=== PATIENT | male | born 1990 | race Caucasian/White ===

== ENCOUNTER 2017-02-01 16:33 | Emergency (ER) | payer MEDICAID ==
[2017-02-01 16:41] VITALS: BP 158/115; BMI 45.7
[2017-02-01 17:04] LABS: BASOPHILS % (AUTO) 0.4 % (0.2-1.0); EOSINOPHILS # (AUTO) 0.1 x10^3/uL (0.0-0.2); EOSINOPHILS % (AUTO) 1.1 % (0.9-2.9); HEMATOCRIT 47.9 % (42.0-54.0); HEMOGLOBIN 15.5 g/dL (13.5-18.0); LYMPHOCYTES % (AUTO) 16.6 % (21.0-51.0); MEAN CORPUSCULAR HEMOGLOBIN 25.7 pg (27.0-34.0); MEAN CORPUSCULAR HGB CONC 32.3 g/dL (33.0-35.0); MEAN CORPUSCULAR VOLUME 79.5 fL (80.0-100.0); MEAN PLATELET VOLUME 9.5 fL (7.4-11.0); MONOCYTES # (AUTO) 0.5 x10^3/uL (0.3-0.8); MONOCYTES % (AUTO) 4.3 % (0.0-13.0); NEUTROPHILS # (AUTO) 9.4 x10^3/uL (2.2-4.8); NEUTROPHILS % (AUTO) 77.6 % (42.0-75.0); PLATELET COUNT 311 X10^3/uL (150.0-450.0); RED BLOOD COUNT 6.03 X10^6/uL (4.7-6.0); RED CELL DISTRIBUTION WIDTH 14.4 % (11.6-16.5); WHITE BLOOD COUNT 12.1 X10^3/uL (3.6-10.0)
[2017-02-01 17:17] LABS: ALANINE AMINOTRANSFERASE 39 Units/L (12-78); ALBUMIN 4.3 g/dL (3.4-5.0); ALKALINE PHOSPHATASE 111 Units/L (46-116); ASPARTATE AMINO TRANSFERASE 17 Units/L (15-37); BLOOD ALCOHOL < 3 mg/dL (0-19.9); BLOOD UREA NITROGEN 7 mg/dL (7-18); CALCIUM 9.1 mg/dL (8.5-10.1); CARBON DIOXIDE 26.7 mmol/L (21-32); CHLORIDE 100 mmol/L (98-107); CREATININE 0.92 mg/dL (0.70-1.30); GLUCOSE 104 mg/dL (65-99); SODIUM 133 mmol/L (136-145); TOTAL PROTEIN 8.4 g/dL (6.4-8.2); eGFR BLACK RACES > 60 (>60); eGFR NON BLACK RACES > 60 (>60)
[2017-02-01 17:21] LABS: AMORPHOUS SEDIMENT,UR TRACE /HPF (NEGATIVE); APPEARANCE,URINE CLEAR (CLEAR); BACTERIA,URINE NEGATIVE /HPF (NEGATIVE); BILIRUBIN,URINE NEGATIVE (NEGATIVE); BLOOD/HEMOGLOBIN,URINE NEGATIVE (NEGATIVE); COLOR,URINE YELLOW (YELLOW); GLUCOSE, URINE NEGATIVE (NEGATIVE); KETONES,URINE 3+ (NEGATIVE); LEUKOCYTE ESTERASE ,URINE NEGATIVE (NEGATIVE); NITRITES,URINE NEGATIVE (NEGATIVE); PH,URINE 6.5 (5.0 - 8.0); PROTEIN,URINE NEGATIVE (NEGATIVE); RBC,URINE NONE SEEN /HPF (NEGATIVE); SQUAMOUS EPITHELIAL CELL,UR FEW /HPF (NEGATIVE); UROBILINOGEN,URINE NORMAL (NORMAL)
[2017-02-01 17:23] LABS: SALICYLATE 4.5 mg/dL (2.8-20)
[2017-02-01 17:25] LABS: PLATELET MORPHOLOGY COMMENT NORMAL (NORMAL)
[2017-02-01 17:27] LABS: ACETAMINOPHEN < 10.0 ug/mL (10-30)
--- NOTE | 2017-02-01 17:39 | DR.GENAD ---
HPI - PCP Primary Care Physician: DR. TRAN - Complaint/Symptoms Chief Complaint Doctors Comments: Patient states he is going throught withdrawls from Percocet and Lorcets that he has been taking for his back for the past three years. States he was taking pain medicines for slipped discs in his back with right leg parathesia and had back surgery 1 Nov 08 and was given [address] monthly [address] Tran and he takes them up within four days. States he has been taking eight pain medicines daily and he runs out and has to try to get the pain pills from the street. States he has been having problems being unable to sleep, jerking a lot with runny nose and unable to rest and has been feeling bad. States he has been trying to get on Symboxin but he cannot find a doctor to prescribe it for him. States he has had his 120 pills for this month and he has taken all of them. States he has been thinking about hurting himself by taking an over dose of his blood pressure pills and the other pills he has. states that he tried to kill himself about two years ago he was depressed and went to [place]. States he smokes a pack of cigarettes daily and her tried cocaine yesterday because someone told him it would help with the withdrawls. He denies chest pain or SOB presently, Chief Complaint:: PT. STATED THAT HE IS GOING THROUGH WITHDRAWLS FROM PERCOCET. HE IS BEEN OUT LOOKING FOR SOME TO BUY SOME FROM THE OFF THE STREET. HE STATED THAT HE WANTS TO KILL HIMSELF BY OVERDOSING ON WHAT PILLS HE HAS. PATIENT STATED THAT HE HAD ONE PERCOCET YESTERDAY. - Nurses notes reviewed Nurses Notes Review: Yes - Source History Provided: Patient - Mode of Arrival Mode of Arrival: Ambulatory - Timing Onset of Chief Complaint: 01/31/17 Came on: Gradually - Duration Duration: Constant How lon Duration: Days - Location Location: felling like going through withdrawals - Severity Severity: Moderate - Modifying Factors Worsens:: nothing Improves:: nothing PMH - PMH Past Medical History: Yes Past Medical History: Hypertension Past Surgical History: Yes Surgical History: Appendectomy, Cholecystectomy, Ortho Surgery - Family History History of Family Medical Conditions: Yes Family Medical History: Heart Failure, Hypertension - Social History Does patient currently use any type of tobacco product: Yes Have you used tobacco products in the last 12 months: Yes Type of Tobacco Use: Cigarettes Does any household member use tobacco: No Alcohol Use: Rarely Do you use any recreational Drugs:: No Lives With: Family Lives Where: Home - infectious screening In the last 2 months have you had wt loss of >10#?: NO Have you had fever, night sweats or hemotysis?: No Have you traveled outside the country in the last 6 months?: No Isolation: Standard ROS - Review of Systems Constitutional: No Symptoms Reported, Irritable, Loss of Appetite. negative: See HPI, Chills, Diaphoresis, Fever, Malaise, Weakness, Fatigue, Other Eyes: No Symptoms Reported ENTM: No Symptoms Reported, Nose Discharge, Nose Congestion. negative: See HPI , Ear Pain, Ear Discharge, Pulling on Ears, Hearing Loss, Nose Pain, Epistaxis, Mouth Pain, Mouth Swelling, Loose Teeth, Drooling, Throat Pain, Throat Swelling , Ear Foreign Body Respiratoy: No Symptoms Reported Cardiovascular: No Symptoms Reported, Palpitations. negative: See HPI, Chest Pain, Edema, Syncope, Cyanosis, Skin Mottling, Other Gastrointestinal/Abdominal: No Symptoms Reported, Nausea, Vomiting. negative: See HPI, Abdominal Pain, Constipation, Diarrhea, Food Intolerance, Other Genitourinary: No Symptoms Reported Neurological: No Symptoms Reported, Depressed, Emotional Problems. negative: See HPI, Anxiety, Headache, Numbness, Paresthesia, Pre-existing Deficit, Seizure , Tingling, Tremors, Weakness, Dizziness, Problems Walking, Speech Problem, Other Musculoskeletal: No Symptoms Reported, Back Integumentary: No Symptoms Reported Hematologic/Lymphatic: No Symptoms Reported. negative: See HPI, Anemia, Blood Clots, Easy Bleeding, Easy Bruising, Swollen Glands, Lymphadenopathy, Other Endocrine: No Symptoms Reported Psychiatric: No Symptoms Reported PE - Vital Signs Vitals: Temperature 98.2 F Pulse Rate 116 Respiratory Rate 20 Blood Pressure [Left Arm] 147/82 Blood Pressure 158/115 O2 Sat by Pulse Oximetry 99 - General Limitations: No Limitations General Appearance: Alert, In No Apparent Distress - Head Head Exam: Normal Inspection, Atraumatic, Normocephalic - Eyes Eye exam: Normal Appearance, PERRL, EOMI. negative: Scleral Icterus, Conjunctival Injection, Nystagmus, Miosis, Mydrasis, Periorbital Swelling, Periorbital Tenderness, Other - ENT ENT Exam: Normal Exam, Normal Oropharynx, Normal External Ear Exam, Mucous Membranes Moist, TM's Normal Bilaterally External Ear Exam: Normal External Inspection TM/Canal Exam: Bilateral Normal Nose Exam: Normal Nose Exam Mouth Exam: Normal Inspection Throat Exam: Normal Inspection - Neck Neck Exam: Normal Inspection, Full ROM, Trachea Midline - Chest Chest Inspection: Normal Inspection, Symmetric Chest Wall Rise - Respiratory Respiratory Exam: Normal Lung Sounds Bilat Respiratory Exam: Bilateral Clear to Auscultation - Cardiovascular Cardiovascular Exam: Regular Rate, Normal Rhythm, Normal Heart Sounds. negative : Bradycardia, Tachycardia, Irregular Rhythm, Systolic Murmur, Diastolic Murmur , Rubs, Gallop, Clicks, JVD, +S1, +S2, +S3, +S4, Other - Abdominal Exam Abdominal Exam: Normal Inspection, Normal Bowel Sounds, Soft Abdominal Tenderness: negative: RUQ, RLQ, LUQ, LLQ, Epigastrium, Suprapubic, Diffuse, Mild, Moderate, Severe, Other - Extremities Extremities Exam: Normal Inspection, Full ROM, Normal Capillary Refill. negative: Tenderness, Edema, Joint Swelling, Calf Tenderness, Other - Back Back Exam: Normal Inspection, Full ROM, Tenderness. negative: (R) CVA Tenderness, (L) CVA Tenderness, Muscle Spasm, Paraspinal Tenderness, Vertebral Tenderness, Rashes, (R) Sciatic Notch Tenderness, (L) Sciatic Notch Tendern, (R ) Straight Leg Raise, (L) Straight Leg Raise, Other - Neurologic Neurological Exam: Alert, Oriented X3, CN II-XII Intact, Reflexes Normal. negative: Normal Gait (gait not tested) - Psychiatric Psychiatric Exam: Normal Affect, Normal Mood, Depressed. negative: Agitated, Anxious, Flat Affect, Manic, Homicidal Ideation, Suicidal Ideation, Other - Skin Skin Exam: Warm, Dry, Intact, Normal Color. negative: Rash, Cyanosis, Diaphoresis, Erythema, Pallor, Mottled, Other ROR - Labs Reviewed Laboratory Results Reviewed?: Yes (All labs results reviewed but some were pending when patient signed AMA.) Result Diagrams: 02/01/17 16:50 02/01/17 16:50 Laboratory: WBC 12.1 X10^3/uL (3.6-10.0) H 02/01/17 16:50 RBC 6.03 X10^6/uL (4.7-6.0) H 02/01/17 16:50 Hgb 15.5 g/dL (13.5-18.0) 02/01/17 16:50 Hct 47.9 % (42.0-54.0) 02/01/17 16:50 MCV 79.5 fL (80.0-100.0) L 02/01/17 16:50 MCH 25.7 pg (27.0-34.0) L 02/01/17 16:50 MCHC 32.3 g/dL (33.0-35.0) L 02/01/17 16:50 RDW 14.4 % (11.6-16.5) 02/01/17 16:50 Plt Count 311 X10^3/uL (150.0-450.0) 02/01/17 16:50 Plt Count Comment Adequate (ADEQUATE) 02/01/17 16:50 MPV 9.5 fL (7.4-11.0) 02/01/17 16:50 Neut % 77.6 % (42.0-75.0) H 02/01/17 16:50 Lymph % 16.6 % (21.0-51.0) L 02/01/17 16:50 [place] % 4.3 % (0.0-13.0) 02/01/17 16:50 Eos % 1.1 % (0.9-2.9) 02/01/17 16:50 Baso % 0.4 % (0.2-1.0) 02/01/17 16:50 Neut # 9.4 x10^3/uL (2.2-4.8) H 02/01/17 16:50 Lymph # 2.0 X10^3/uL (1.3-2.9) 02/01/17 16:50 [place] # 0.5 x10^3/uL (0.3-0.8) 02/01/17 16:50 Eos # 0.1 x10^3/uL (0.0-0.2) 02/01/17 16:50 Baso # 0.0 X10^3/uL (0.0-0.1) 02/01/17 16:50 Absolute Nucleated RBC 0.0 /100WBC 02/01/17 16:50 Plt Morphology Comment Normal (NORMAL) 02/01/17 16:50 RBC Morphology Normal (NORMAL) 02/01/17 16:50 Sodium 133 mmol/L (136-145) L 02/01/17 16:50 Corrected Sodium TNP 02/01/17 16:50 Potassium 3.6 mmol/L (3.5-5.1) 02/01/17 16:50 Chloride 100 mmol/L (98-107) 02/01/17 16:50 Carbon Dioxide 26.7 mmol/L (21-32) 02/01/17 16:50 BUN 7 mg/dL (7-18) 02/01/17 16:50 Creatinine 0.92 mg/dL (0.70-1.30) 02/01/17 16:50 Est GFR (MDRD) Af Amer > 60 (>60) 02/01/17 16:50 Est GFR (MDRD) Non-Af > 60 (>60) 02/01/17 16:50 Glucose 104 mg/dL (65-99) H 02/01/17 16:50 Calcium 9.1 mg/dL (8.5-10.1) 02/01/17 16:50 Corrected Calcium TNP 02/01/17 16:50 Total Bilirubin 0.70 mg/dL (0.2-1.0) 02/01/17 16:50 AST 17 Units/L (15-37) 02/01/17 16:50 ALT 39 Units/L (12-78) 02/01/17 16:50 Alkaline Phosphatase 111 Units/L (46-116) 02/01/17 16:50 Total Protein 8.4 g/dL (6.4-8.2) H 02/01/17 16:50 Albumin 4.3 g/dL (3.4-5.0) 02/01/17 16:50 Globulin 4.1 g/dL (2.5-4.5) 02/01/17 16:50 Albumin/Globulin Ratio 1.0 Ratio (1.1-2.1) L 02/01/17 16:50 Specimen Type Clean catch urine 02/01/17 16:57 Urine Color Yellow (YELLOW) 02/01/17 16:57 Urine Appearance Clear (CLEAR) 02/01/17 16:57 Urine pH 6.5 (5.0 - 8.0) 02/01/17 16:57 Ur Specific [place] 1.005 (1.000-1.030) 02/01/17 16:57 Urine Protein Negative (NEGATIVE) 02/01/17 16:57 Urine Glucose (UA) Negative (NEGATIVE) 02/01/17 16:57 Urine Ketones 3+ (NEGATIVE) 02/01/17 16:57 Urine Occult Blood Negative (NEGATIVE) 02/01/17 16:57 Urine Nitrite Negative (NEGATIVE) 02/01/17 16:57 Urine Bilirubin Negative (NEGATIVE) 02/01/17 16:57 Urine Urobilinogen Normal (NORMAL) 02/01/17 16:57 Ur Leukocyte Esterase Negative (NEGATIVE) 02/01/17 16:57 Urine RBC None seen /HPF (NEGATIVE) 02/01/17 16:57 Urine WBC 0-1 /HPF (NEGATIVE) 02/01/17 16:57 Ur Squamous Epith Cells Few /HPF (NEGATIVE) 02/01/17 16:57 Amorphous Sediment Trace /HPF (NEGATIVE) 02/01/17 16:57 Urine Bacteria Negative /HPF (NEGATIVE) 02/01/17 16:57 Ur Culture Indicated? No/not indicated 02/01/17 16:57 Salicylates 4.5 mg/dL (2.8-20) 02/01/17 16:50 Urine Opiates Screen Negative (NEG=<300) 02/01/17 16:57 Urine Methadone Screen Negative (NEG=<300) 02/01/17 16:57 Acetaminophen < 10.0 ug/mL (10-30) L 02/01/17 16:50 Ur Barbiturates Screen Negative (NEG=<200) 02/01/17 16:57 Ur Phencyclidine Scrn Negative (NEG=<25) 02/01/17 16:57 Ur Amphetamines Screen Negative (NEG=<1000) 02/01/17 16:57 U Benzodiazepines Scrn Positive (NEG=<200) 02/01/17 16:57 Urine Cocaine Screen Positive (NEG=<300) 02/01/17 16:57 U Marijuana (THC) Screen Negative (NEG=<50) 02/01/17 16:57 Ethyl Alcohol mg/dL < 3 mg/dL (0-19.9) 02/01/17 16:50 - EKG Rate: 93 [place]: Normal Rhythm: NSR Block: None Hypertrophy: LAE ST: Nonsp - Diagnosis Discharge Problem: History of long-term use of multiple prescription drugs, Neurosis, depressive - Discharge Plan Disposition: AGAINST MEDICAL ADVICE Condition: Stable - Follow ups/Referrals Follow ups/Referrals: OMAR TRAN [Primary Care Provider] - 3 days - Instructions
[2017-02-01] MEDS ORDERED: CATAPRES TAB 0.2 MG PO ONE (17:42)
[2017-02-01] MEDS ORDERED: PHENERGAN INJ 25 MG IM ONE (17:43)
[2017-02-01] MEDS ORDERED: TORADOL 60 MG VIAL IM ONE (17:43)
[2017-02-01] MEDS ORDERED: PHENERGAN INJ 25 MG ONE (17:44)
[2017-02-01] MEDS ORDERED: TORADOL 60 MG VIAL ONE (17:45)
[2017-02-01] MEDS ORDERED: CATAPRES TAB 0.2 MG ONE (17:45)
== END 2017-02-01 18:00 | disposition left against medical advice (07) ==
LOC: ER 16:47
DX: F34.1 Dysthymic disorder (principal); Z79.899 Other long term (current) drug therapy
CPT/HCPCS: 36415; 80053; 80307; 80320; 81001; 85025; 93005; 93010; 96372; 99282; 99283; G0434; G6038; G6039; G6040; J1885; J2550